=== PATIENT | male | born 1950 | race Asian ===

== ENCOUNTER → 2017-09-02 09:12 | Outpatient (CLI) | payer MEDICARE, OTHER, SELFPAY ==
--- NOTE | 2017-09-04 07:51 | PM.PFT.1 ---
Pulmonary Function Test Referral & Results Date Patient Seen: 09/02/17 Requesting provider: Luis Gutierrez Results: The spirometry demonstrates an FVC of 1.76 L which is 50% of predicted. The FEV1 was measured at 1.27 L which is 49% of predicted. The FEV1/FVC ratio was 73 which is 98% of predicted. Following the administration of bronchodilator there was no appreciable change. Lung volumes show an SVC of 1.84 L which is 50% of predicted. The diffusing capacity was measured at 10.53 which is 45% of predicted. No hemoglobin value was provided, so no correction for potential anemia could be made, if appropriate. The maximum voluntary ventilation was reduced. Interpretation: This study demonstrates moderately severe obstructive lung disease without evidence of benefit following bronchodilator administration. There is also moderately severe restrictive lung disease based on significant reduction in lung volumes. There is also a very significant reduction in diffusing capacity suggesting significant disease at the capillary alveolar level. Compared to PFTs performed in February 2017, current study is essentially unchanged.
== END ==
PROVIDERS: Family Provider Family Medicine; PCP Family Medicine; Visit Provider Internal Medicine Critical Care Medicine
DX: J98.4 Other disorders of lung (principal); J92.9 Pleural plaque without asbestos; J18.9 Pneumonia, unspecified organism; Z77.090 Contact with and (suspected) exposure to asbestos
CPT/HCPCS: 94010; 94060; 94726; 94729

== ENCOUNTER → 2024-02-22 07:22 | Outpatient (CLI) | payer MEDICARE, OTHER, SELFPAY ==
--- NOTE | 2024-02-22 07:24 | DI.US.S_ITS ---
PROCEDURE: US ABDOMEN COMPLETE INDICATIONS: THROMBOCYTOPENIA TECHNIQUE: Real-time scanning was performed of the abdominal and retroperitoneal organs, with image documentation. COMPARISON: None. FINDINGS: Liver: Liver is normal in size and homogeneous in echotexture. Gallbladder: No stones, pericholecystic fluid, or abnormal thickening. Biliary ducts: Intrahepatic bile ducts are non-dilated. Extrahepatic bile duct caliber measures 6 mm. Normal is 6-7 mm or less in diameter, or 10 mm or less post-cholecystectomy. Pancreas: Not well identified due to overlying bowel gas. Spleen: Spleen is normal in size (9.7 cm in maximal dimension) and homogeneous in echotexture. Kidneys: The [place] kidneys are echogenic in echotexture. The right kidney measures 7.4 cm in length with a cortical thickness of 0.7 cm. The left kidney measures 9.7 cm with a cortical thickness of 1.3 cm. There is a left inferior pole 1.6 cm simple cyst. Aorta: Visualized aorta is normal in caliber at less than 3 cm. Iliacs: Obscured due to overlying bowel gas. IVC: Intrahepatic inferior vena cava is patent. Miscellaneous: No free abdominal fluid. Right lower quadrant transplant kidney with a length of 10.8 cm and cortical thickness of 0.9 cm. Vascularity is preserved. There is a 2.7 cm superolateral exophytic simple cyst. IMPRESSION: 1. No hepatosplenomegaly. 2. Right renal atrophy with overall sonographic findings reflective of chronic medical renal disease. 3. Right lower quadrant transplant kidney with preserved vascularity. Dictated by: Ramo Aguilar M.D. on 02/22/2024 at 15:09 Approved by: Ramo Aguilar M.D. on 02/22/2024 at 15:16
== END ==
PROVIDERS: Family Provider Family Medicine; PCP Physician Assistant; Referring Provider Internal Medicine; Visit Provider Internal Medicine
DX: T86.10 Unspecified complication of kidney transplant (principal); N28.1 Cyst of kidney, acquired; D69.6 Thrombocytopenia, unspecified
CPT/HCPCS: 76700

== ENCOUNTER 2024-07-22 03:27 | Emergency (ER) | payer MEDICARE, OTHER, SELFPAY ==
[2024-07-22] VITALS (23 sets, daily range): BP systolic 101–195; BP diastolic 55–97; PULSE 40–88; RESP 18; TEMP 34.7–36.1; O2SAT 93–100
[2024-07-22] MEDS: SODIUM BICARB 8.4% SYRINGE 50 MEQ IV (03:30)
[2024-07-22] MEDS: CALCIUM GLUCONATE 4.65 MEQ in SODIUM CHLORIDE 0.9% 50 ML 180 MEQ IV ×2 (03:33→05:39)
--- NOTE | 2024-07-22 03:33 | DI.RAD.S_ITS ---
PROCEDURE: XR CHEST 1V INDICATIONS: s/p intubation TECHNIQUE: One view of the chest was acquired. COMPARISON: None. FINDINGS AND IMPRESSION: ET tube projects over the mid trachea. Low lung volumes. Moderate diffuse lung disease, likely edema or infection. Consider future imaging surveillance to assess for resolution. Sternotomy wires. Cardiomegaly and mediastinal clips. No significant discrepancy from the preliminary report. Dictated by: Danny Tariq M.D. on 07/22/2024 at 8:01 Approved by: Danny Tariq M.D. on 07/22/2024 at 8:03
--- NOTE | 2024-07-22 03:34 | DI.CT.S_ITS ---
PROCEDURE: CT ANGIO CHEST PE PROTOCOL INDICATIONS: s/p ROSC TECHNIQUE: After the administration of intravenous contrast, 2 mm thick sections acquired from the pulmonary apices to the posterior costophrenic angles. 3-dimensional maximum intensity projection (MIP) coronal and sagittal reformats were then acquired through the thorax. For radiation dose reduction, the following was used: automated exposure control, adjustment of mA and/or kV according to patient size. COMPARISON: None. FINDINGS: Image quality: Diagnostic Lungs and pleura: Bibasilar consolidations. [id number]-[id number] right pleural effusion. Opacities also seen in the upper lobes, along with septal thickening. ET tube terminates in the mid trachea Mediastinum, heart, and esophagus: No acute pulmonary embolism. Poor filling of the left lower lobe pulmonary arteries. Cardiomegaly. Coronary calcifications. Partially seen enteric tube. No pathologic lymph nodes by size criteria. Chest wall and thyroid: Small thyroid nodules, measuring up to 1.5 cm, with calcifications. Upper abdomen: Separately dictated Bones: No aggressive appearing osseous abnormality. There are degenerative changes. There are sternotomy wires. Minimal to nondisplaced rib fractures anteriorly likely related chest compressions. IMPRESSION: Filling defect within the left lower lobe pulmonary arteries do not appear to be acute. This is favored to be related to contrast timing versus low cardiac output, versus subacute to chronic embolism. Cardiomegaly and coronary calcifications. Diffuse airspace consolidations, greatest in the right lower lobe. Adjacent mqqb-xg-rxskrgqw effusion. Consider future imaging surveillance to assess for resolution. Small thyroid nodules with calcifications, consider nonurgent sonographic follow-up. Other findings above. To ensure final report receipt, call report was initiated from the [facility] radiology call center. Dictated by: Danny Tariq M.D. on 07/22/2024 at 8:15 Approved by: Danny Tariq M.D. on 07/22/2024 at 8:22
--- NOTE | 2024-07-22 03:34 | DI.CT.S_ITS ---
PROCEDURE: CT HEAD/BRAIN WO CON INDICATIONS: s/p ROSC TECHNIQUE: Noncontrast 4.5 mm thick angled axial sections acquired from the foramen magnum to the vertex, with coronal and sagittal reformats. For radiation dose reduction, the following was used: automated exposure control, adjustment of mA and/or kV according to patient size. COMPARISON: None. FINDINGS: Image quality: Diagnostic CSF spaces: Basal cisterns are patent. Lateral ventricles are symmetric. Volume: Vascular calcifications. Periventricular white matter disease is commonly seen with chronic microangiopathy. Volume loss is present. These findings are moderate Brain: No intracranial hemorrhage. Bowen-white differentiation is grossly maintained. Craniofacial structures: Partially seen enteric tube and ETT. Paranasal sinus nvtf-kj-qugimtgx mucosal thickening. IMPRESSION: No acute intracranial pathology. No significant discrepancy from the preliminary report Dictated by: Danny Tariq M.D. on 07/22/2024 at 8:14 Approved by: Danny Tariq M.D. on 07/22/2024 at 8:15
--- NOTE | 2024-07-22 03:35 | DI.CT.S_ITS ---
PROCEDURE: CT ABDOMEN PELVIS W CON INDICATIONS: s/p ROSC TECHNIQUE: After the administration of intravenous contrast, axial sections acquired from the lung bases to the pubic symphysis. Coronal and sagittal reformats were performed. For radiation dose reduction, the following was used: automated exposure control, adjustment of mA and/or kV according to patient size. COMPARISON: Ultrasound 02/22/2024 FINDINGS: Image quality: Diagnostic Lower chest: Separately dictated Liver: Slightly nodular contour Gallbladder and biliary system: Unremarkable, nondilated Pancreas: No ductal dilation Spleen: Nonenlarged Adrenals: No discrete nodules Kidneys: Bilateral renal atrophy. Right pelvis renal graft, within intermediate density probable cyst in the anterior aspect Heterogeneous enhancement of the graft. No hydronephrosis. Vessels and lymph nodes: Main portal vein is patent. No abdominal aortic aneurysm Moderate to severe atherosclerotic calcifications. No pathologic lymphadenopathy by size criteria Bowel and peritoneum: Enteric tube is seen, terminating in the body. Mild diffuse bowel wall thickening. Colonic diverticulosis. Small ascites. Body wall: Small fat containing umbilical hernia. Pelvis: Bladder is unremarkable, under distended with catheter in place. Bones: No aggressive appearing osseous abnormality. There are degenerative changes. IMPRESSION: No large hemorrhage. Small ascites. Slightly nodular liver contour, correlate for clinical signs of chronic liver disease. Atrophic [place] kidneys. Right pelvis renal graft, with heterogeneous enhancement, correlate urinalysis. Intermediate density lesion at the posterior aspect, probably intermediate density cyst as seen on prior ultrasound. Mild diffuse bowel wall thickening, possibly mild enteritis versus congestive enteropathy. No significant discrepancy from the preliminary report. Dictated by: Danny Tariq M.D. on 07/22/2024 at 8:03 Approved by: Danny Tariq M.D. on 07/22/2024 at 8:14
--- NOTE | 2024-07-22 03:36 | EKG_ITS ---
[facility] [id number] [place] [id number] Test Date: 2024-07-22 Pat Name: Salvador Bearden Department: Room: Gender: Male Recreation Instructor: GILLIAN ALFREDO : 1950 Requested By: Order Number: [id number] Reading MD: Jayden Childers MD Measurements Intervals [place] Rate: 84 P: ME: 208 QRS: 111 QRSD: 120 T: -74 QT: 370 QTc: 437 Interpretive Statements Normal sinus rhythm with sinus arrhythmia Right axis deviation Low voltage QRS Septal infarct , age undetermined ST & T wave abnormality, consider inferior ischemia NO PRIOR TRACING Electronically Signed On 07-22-2024 7:34:26 PDT by Jayden Childers MD
[2024-07-22 03:47] LABS: Add Manual Diff / Slide Review NO; Basophils Absolute Auto 100 /uL (0-100); Basophils Percent Auto 0.9 % (0-2); Eosinophils Absolute Auto 100 /uL (0-450); Eosinophils Percent Auto 1.4 % (2-4); Hematocrit 34.6 % (41-53); Hemoglobin 11.7 g/dL (13.5-17.5); Lymphocytes Absolute Auto 3000 /uL (1100-4500); Lymphocytes Percent Auto 36.3 % (25-40); Mean Corpuscular HGB Conc 33.9 % (30-36); Mean Corpuscular Hemoglobin 33.8 PG (26-34); Mean Corpuscular Volume 99.8 fL (80-100); Monocytes Absolute Auto 200 /uL (0-900); Monocytes Percent Auto 2.9 % (3-14); Neutrophils Absolute Auto 4800 /uL (1500-7000); Neutrophils Percent Auto 58.5 % (50-75); Platelet Count 67 X10^3/uL (150-400); Red Blood Cell Count 3.46 X10^6/uL (4.5-5.9); Red Cell Distribution Width 15.2 % (11.6-14.8); White Blood Cell Count 8.2 X10^3/uL (4.5-11.0)
[2024-07-22 03:53] LABS: INR 1.5 (0.9-1.3); Prothrombin Time 17.2 SECONDS (9.4-12.5)
[2024-07-22 03:56] LABS: PTT Partial Thromboplastin Tim 56 SECONDS (25.1-36.5)
--- NOTE | 2024-07-22 04:05 | DI.CT.S_ITS ---
PROCEDURE: CT CERVICAL SPINE WO CON INDICATIONS: trauma TECHNIQUE: Noncontrast 3 mm thick sections acquired from the skull base to the T4 level. Sagittal and coronal reformats were then constructed. For radiation dose reduction, the following was used: automated exposure control, adjustment of mA and/or kV according to patient size. COMPARISON: None. FINDINGS: Image quality: Diagnostic Bones: No acute vertebral body height loss. No traumatic subluxation. Mild overall degenerative changes. Soft tissues: Partially seen enteric tube and ETT. IMPRESSION: No displaced fracture or traumatic subluxation. Mild degenerative changes. If there is high concern for further derangement, consider MRI evaluation. No significant discrepancy from the preliminary report. Dictated by: Danny Tariq M.D. on 07/22/2024 at 8:23 Approved by: Danny Tariq M.D. on 07/22/2024 at 8:24
[2024-07-22 04:08] LABS: Lactate (Lactic Acid) 2.2 mmol/L (0.7-2.1)
[2024-07-22 04:09] LABS: Alanine Aminotransferase 15 IU/L (<50); Albumin 2.7 g/dL (3.5-5.0); Albumin Globulin Ratio 1.9 (1.0-2.8); Aspartate Aminotransferase 31 IU/L (17-59); BUN Creatinine Ratio 31.6 (6-22); Blood Urea Nitrogen 83 mg/dL (9-20); Chloride 106 mmol/L (98-107); Creatine Kinase 191 U/L (55-170); Estimated Glomerular Filt Rate 25 mL/min (>60); Globulin 1.4 g/dL (1.7-4.1); Glucose 112 mg/dL (70-99); HEMOLYSIS 25 (0-50); Lipase 53 U/L (23-300); Magnesium 1.6 mg/dL (1.6-2.3); Potassium 4.2 mmol/L (3.4-5.1); Total Protein 4.1 g/dL (6.3-8.2)
[2024-07-22] MEDS: PIPERACILLIN/TAZO 4.5 GM in SODIUM CHLORIDE 0.9% 100 ML IV (04:25)
--- NOTE | 2024-07-22 04:29 | EKG_ITS ---
[facility] [address] [place] [address] Test Date: 2024-07-22 Pat Name: Salvador Bearden Department: [facility] Room: Gender: Male Legal Aide: GILLIAN ALFREDO : 1950 Requested By: Order Number: [id number] Reading MD: Jayden Childers MD Measurements Intervals [place] Rate: 48 P: MS: QRS: 99 QRSD: 100 T: -72 QT: 480 QTc: 428 Interpretive Statements Sinus Rhythm with 1st Degree AV Block Rightward axis Low voltage QRS Septal infarct , age undetermined ST & T wave abnormality, consider inferolateral ischemia NO SIGNIFICANT CHANGE FROM PRIOR TRACING Electronically Signed On 07-22-2024 7:35:16 PDT by Jayden Childers MD
[2024-07-22] MEDS: SODIUM BICARB 8.4% VIAL 100 MEQ in DEXTROSE 5% WATER 1,000 ML 150 MEQ IV (04:30)
[2024-07-22 04:31] LABS: Allen Test for ABG Passed? Positive; Base Excess ABG -3.3 mmol/L (-2-3); Blood Gas Collection Site Left Radial; Delivery System Adult Ventilator; HCO3 ABG 24 mmol/L (23-27); Oxygen Saturation ABG 97 % (95-100); PCO2 ABG 55.8 mmHg (35-45); PO2 ABG 112 mmHg (80-100); TCO2 ABG 24 mmol/L (23-27); pH ABG 7.25 (7.35-7.45)
[2024-07-22 04:33] LABS: Bilirubin Total 0.8 mg/dL (0.2-1.3); NT-proBNP (BNP-Adult 18+) 8660 pg/mL (<125); Troponin I 0.036 ng/mL (0.01-0.034)
[2024-07-22 04:34] LABS: Alkaline Phosphatase 59 U/L (38-126)
[2024-07-22] MEDS: ATROPINE 1 MG/10 ML SYRINGE IV (04:34)
[2024-07-22 04:36] LABS: Calcium 6.1 mg/dL (8.4-10.2); Sodium 189 mmol/L (137-145)
[2024-07-22] MEDS: VANCOMYCIN 2,000 MG/400 ML PIGGYBACK 200 MG IV (04:48)
[2024-07-22] MEDS: EPINEPHrine 4 MG in DEXTROSE 5% IN WATER 246 ML 3.75 MG IV (04:48)
[2024-07-22] MEDS: SODIUM CHLORIDE 0.45% 1,000 ML 1000 ML IV (04:57)
[2024-07-22] MEDS: SODIUM CHLORIDE 0.9% IV (05:00)
[2024-07-22] MEDS: MAGNESIUM SULFATE IV (05:00)
[2024-07-22 05:11] LABS: Procalcitonin 0.086 ng/mL (<0.5)
[2024-07-22 05:12] LABS: Carbon Dioxide 55 mmol/L (22-32)
[2024-07-22 05:14] LABS: Reflexed Lactate in 2 Hours Y
--- NOTE | 2024-07-22 05:35 | ED_ITS ---
HPI - CPR General Chief Complaint: Cardiac Arrest/CPR Stated Complaint: code blue Time Seen by Provider: 07/22/24 03:33 Source: EMS Mode of arrival: EMS History of Present Illness HPI narrative: 73-year-old male with a past medical history of renal transplant 10 years ago, on tacrolimus, hyperlipidemia, hypertension, diabetes, comes into the ED via EMS for cardiac arrest, according to EMS 1 hour prior to arrival they were called for a syncopal episode they found him unresponsive PE, state that they did 2 rounds of epi got Ross, however while they were on their way to an outside hospital he lost pulses, therefore were diverted here, prior to arrival they did get wrong again, however at the ambulance [place] patient lost pulses again another 1 of epi was given, Ross was achieved, patient was intubated prior to arrival, did retract the ET tube to cm, according to EMS they did give patient a total of 300 of ketamine and rock. According to family patient has been having diarrhea over the past few days due to antibiotics for a left leg cellulitis, according to she states that he was getting up to use the restroom felt lightheaded dizzy and syncopized. Additional ROS HPI limited given patient's severity of illness. Related Data Allergies Allergy/AdvReac Type Severity Reaction Status Date / Time ibuprofen Allergy Verified 07/22/24 05:05 Review of Systems Review of Systems ROS Unobtainable: Unobtainable due to medical condition Exam Narrative Exam Narrative: General: Ill-appearing, HEENT: Normocephalic, atraumatic, patient intubated Neck: In C-collar for precautions Chest: Normal to inspection, negative crepitus, no overlying erythema ecchymosis Respiratory: Slightly decreased breath sounds bilaterally upon initial auscultation Cardiology: Regular rate rhythm negative gallop GI/: N soft, non rigid, normal to inspection, MSK: No gross deformities noted, atraumatic, Skin: No rashes or lesions noted Neuro: Unresponsive Initial Vital Signs Initial Vital Signs: Vital Signs Pulse Rate 88 07/22/24 03:30 Blood Pressure 195/97 H 07/22/24 03:30 Pulse Oximetry 94 07/22/24 03:30 Procedures Central Line Placement Right Femoral: Time of procedure: 05:55 Time Out Performed: Yes Patient Placed on Monitor/Pulse Ox: Yes Prep: mask and gloves Central Line Prep: Chlorhexidine scrub Ultrasound Used for Placement: Yes Central Line Lumen Inserted: triple Post Procedure: sutured in place, good blood return, all ports aspirated, flushed, capped, sterile dressing applied and line stabilization device Patient Tolerated Procedure: Well and No complications Complications: none Course Orders Ordered: ED Orders 07/22/24 03:30 Complete Blood Count AUTO DIFF Stat Comprehensive Metabolic Panel Stat Lactate (Lactic Acid) Stat Lipase Stat MAG [Magnesium] Stat NT-proBNP (BNP-Adult 18+) Stat PTT Partial Thromboplastin Charles Stat Procalcitonin Stat Prothrombin Time INR Stat Troponin & CK Cardiac Panel Stat 07/22/24 03:33 XR chest 1V Stat EKG-12 Lead Stat 07/22/24 03:34 CT angio chest PE protocol Stat CT head/brain wo con Stat Urinalysis and Microscopic Stat 07/22/24 03:35 CT abdomen pelvis w con Stat Arterial Blood Gas STAT 07/22/24 03:45 Blood Culture Stat 07/22/24 04:05 CT cervical spine wo con Stat 07/22/24 04:28 EKG-12 Lead Stat 07/22/24 06:05 CMP [Comprehensive Metabolic Panel] Stat NOREPINEPHRINE BITARTRATE/D5W (Levophed) 4 mg in 250 mls @ 30.375 mls/hr IV TITRATE CARIDAD; Protocol Last Admin: 07/22/24 05:40 Dose: Not Given Sodium Bicarbonate 100 meq/ (Dextrose) 1,100 mls @ 150 mls/hr IV CONT CARIDAD Last Admin: 07/22/24 04:30 Dose: 150 mls/hr Documented By: PEYTON Epinephrine HCl 4 mg/ Dextrose 250 mls @ 3.75 mls/hr IV TITRATE CARIDAD; Protocol Last Titration: 07/22/24 05:24 Dose: 4 mcg/min, 15 mls/hr Documented By: Titration: 07/22/24 05:11 Dose: 3 mcg/min, 11.25 mls/hr Documented By: Titration: 07/22/24 04:58 Dose: 2 mcg/min, 7.5 mls/hr Documented By: HNBenson Admin: 07/22/24 04:48 Dose: 1 mcg/min, 3.75 mls/hr Documented By: PEYTON Lactated Ringer's (Lactated Ringers) 1,000 mls @ 150 mls/hr IV CONT CARIDAD Last Admin: 07/22/24 05:59 Dose: 150 mls/hr Discontinued Medications Atropine Sulfate (Atropine 1 Mg/10 Ml Syringe) 1 mg IV NOW ONE Stop: 07/22/24 04:39 Last Admin: 07/22/24 04:34 Dose: 1 mg Documented By: PEYTON Vancomycin HCl/Dextrose (Vancomycin) 2,000 mg in 400 mls @ 200 mls/hr IV NOW ONE Stop: 07/22/24 06:09 Last Admin: 07/22/24 04:48 Dose: 200 mls/hr Documented By: PEYTON Piperacillin Sod/Tazobactam (Sod 4.5 gm/ Sodium Chloride) 100 mls @ 200 mls/hr IV NOW ONE Stop: 07/22/24 04:11 Last Infusion: 07/22/24 05:08 Dose: Infused Documented By: Admin: 07/22/24 04:25 Dose: 200 mls/hr Documented By: PEYTON Calcium Gluconate 4.65 meq/ (Sodium Chloride) 60 mls @ 180 mls/hr IV NOW ONE Stop: 07/22/24 03:39 Last Infusion: 07/22/24 05:17 Dose: Infused Documented By: Admin: 07/22/24 03:33 Dose: 180 mls/hr Documented By: PEYTON Sodium Bicarbonate 150 meq/ (Dextrose) 1,150 mls @ 150 mls/hr IV CONT CARIDAD Sodium Chloride (Normal Saline 0.45%) 1,000 mls @ 1,000 mls/hr IV BOLUS ONE Stop: 07/22/24 05:41 Last Admin: 07/22/24 04:57 Dose: 1,000 mls/hr Documented By: PEYTON Magnesium Sulfate 5 gm/ Sodium (Chloride) 110 mls @ 110 mls/hr IV NOW ONE Stop: 07/22/24 05:59 Last Titration: 07/22/24 06:17 Dose: 0 mls/hr Calcium Gluconate 4.65 meq/ (Sodium Chloride) 60 mls @ 180 mls/hr IV NOW ONE Stop: 07/22/24 05:49 Last Titration: 07/22/24 06:17 Dose: 0 mls/hr Sodium Bicarbonate (Sodium Bicarb 8.4% Syringe) 50 meq IV NOW ONE Stop: 07/22/24 03:21 Last Admin: 07/22/24 03:30 Dose: 50 meq Documented By: HNG Vital Signs Vital signs: Vital Signs - 8 hr 07/22/24 03:30 07/22/24 03:30 07/22/24 03:31 Temperature Pulse Rate 88 Respiratory Rate Blood Pressure 195/97 H 163/90 H Pulse Oximetry 94 Oxygen Delivery Method 07/22/24 03:31 07/22/24 04:20 07/22/24 04:20 Temperature 97.0 F L Pulse Rate 88 58 L Respiratory Rate 18 18 Blood Pressure 121/63 Pulse Oximetry 94 94 Oxygen Delivery Method Mechanical Ventilation 07/22/24 04:26 07/22/24 04:26 07/22/24 04:30 Temperature 96.8 F L 96.8 F L Pulse Rate 55 L 43 L Respiratory Rate 18 18 Blood Pressure 114/56 L Pulse Oximetry 97 97 Oxygen Delivery Method 07/22/24 04:30 07/22/24 04:32 07/22/24 04:32 Temperature 96.8 F L Pulse Rate 44 L Respiratory Rate 18 Blood Pressure 112/58 L 109/57 L Pulse Oximetry 96 Oxygen Delivery Method 07/22/24 04:35 07/22/24 04:35 07/22/24 04:40 Temperature 96.6 F L 96.6 F L Pulse Rate 42 L 42 L Respiratory Rate 18 18 Blood Pressure 102/59 L Pulse Oximetry 96 96 Oxygen Delivery Method 07/22/24 04:40 07/22/24 04:45 07/22/24 04:45 Temperature 96.4 F L Pulse Rate 41 L Respiratory Rate 18 Blood Pressure 104/55 L 101/58 L Pulse Oximetry 97 Oxygen Delivery Method 07/22/24 04:51 07/22/24 04:51 07/22/24 04:55 Temperature 96.3 F L 96.3 F L Pulse Rate 41 L 41 L Respiratory Rate 18 18 Blood Pressure 115/58 L Pulse Oximetry 94 93 Oxygen Delivery Method 07/22/24 04:55 07/22/24 05:00 07/22/24 05:00 Temperature 96.1 F L Pulse Rate 43 L Respiratory Rate 18 Blood Pressure 121/64 121/62 Pulse Oximetry 93 Oxygen Delivery Method 07/22/24 05:01 07/22/24 05:01 07/22/24 05:05 Temperature 96.1 F L Pulse Rate 40 L Respiratory Rate 18 Blood Pressure 124/65 113/57 L Pulse Oximetry 93 Oxygen Delivery Method Mechanical Ventilation 07/22/24 05:05 07/22/24 05:10 07/22/24 05:10 Temperature 95.9 F L 95.7 F L Pulse Rate 46 L 45 L Respiratory Rate 18 18 Blood Pressure 114/60 Pulse Oximetry 93 95 Oxygen Delivery Method 07/22/24 05:15 07/22/24 05:15 07/22/24 05:20 Temperature 95.5 F L 95.4 F L Pulse Rate 42 L 41 L Respiratory Rate 18 18 Blood Pressure 114/58 L Pulse Oximetry 96 96 Oxygen Delivery Method 07/22/24 05:20 07/22/24 05:25 07/22/24 05:25 Temperature 95.2 F L Pulse Rate 41 L Respiratory Rate 18 Blood Pressure 116/59 L 123/66 Pulse Oximetry 99 Oxygen Delivery Method 07/22/24 05:30 07/22/24 05:30 07/22/24 05:35 Temperature 95.0 F L 94.8 F L Pulse Rate 41 L 42 L Respiratory Rate 18 18 Blood Pressure 124/68 Pulse Oximetry 97 99 Oxygen Delivery Method 07/22/24 05:35 07/22/24 05:52 Temperature 94.5 F L Pulse Rate 46 L Respiratory Rate 18 Blood Pressure 142/63 H 149/75 H Pulse Oximetry 98 Oxygen Delivery Method MDM - Cardiac Arrest/CPR Differential Diagnosis Differential diagnosis: Likely acute massive pulmonary embolism, acute respiratory failure, acute myocardial infarction, cardiac arrest, sudden cardiac and other (Electrolyte abnormality, pneumonia, CVA, intracranial hemorrhage) Lab Data 07/22/24 03:30 07/22/24 03:30 Labs: Lab Results 07/22/24 07/22/24 Range/Units 03:30 04:26 WBC 8.2 (4.5-11.0) X10^3/uL RBC 3.46 L (4.5-5.9) X10^6/uL Hgb 11.7 L (13.5-17.5) g/dL Hct 34.6 L (41-53) % MCV 99.8 (80-100) fL MCH 33.8 (26-34) PG MCHC 33.9 (30-36) % RDW 15.2 H (11.6-14.8) % Plt Count 67 L (150-400) X10^3/uL Neut % (Auto) 58.5 (50-75) % Lymph % (Auto) 36.3 (25-40) % [place] % (Auto) 2.9 L (3-14) % Eos % (Auto) 1.4 L (2-4) % Baso % (Auto) 0.9 (0-2) % Neut # (Auto) 4800 (8716-8234) /uL Lymph # (Auto) 3000 (4804-0582) /uL [place] # (Auto) 200 (0-900) /uL Eos # (Auto) 100 (0-450) /uL Baso # (Auto) 100 (0-100) /uL PT 17.2 H (9.4-12.5) SECONDS INR 1.5 H (0.9-1.3) APTT 56 H (25.1-36.5) SECONDS ABG Sample Site Left radial ABG pH 7.25 L* (7.35-7.45) ABG pCO2 55.8 H (35-45) mmHg ABG pO2 112 H (80-100) mmHg ABG HCO3 24 (23-27) mmol/L ABG Total CO2 24 (23-27) mmol/L ABG O2 Saturation 97 (95-100) % ABG Base Excess -3.3 L (-2-3) mmol/L Jabier Test Positive O2 Delivery Device Adult ventilator Sodium 189 H* (137-145) mmol/L Potassium 4.2 (3.4-5.1) mmol/L Chloride 106 (98-107) mmol/L Carbon Dioxide 55 H* (22-32) mmol/L BUN 83 H (9-20) mg/dL Creatinine 2.63 H (0.66-1.25) mg/dL Estimated GFR 25 L (>60) mL/min BUN/Creatinine Ratio 31.6 H (6-22) Glucose 112 H (70-99) mg/dL Lactate 2.2 H (0.7-2.1) mmol/L Calcium 6.1 L* (8.4-10.2) mg/dL Magnesium 1.6 (1.6-2.3) mg/dL Total Bilirubin 0.8 (0.2-1.3) mg/dL AST 31 (17-59) IU/L ALT 15 (<50) IU/L Alkaline Phosphatase 59 (38-126) U/L Total Creatine Kinase 191 H (55-170) U/L Troponin I 0.036 H (0.01-0.034) ng/mL NT-Pro-B Natriuret Pep 8660 H (<125) pg/mL Total Protein 4.1 L (6.3-8.2) g/dL Albumin 2.7 L (3.5-5.0) g/dL Globulin 1.4 L (1.7-4.1) g/dL Albumin/Globulin Ratio 1.9 (1.0-2.8) Lipase 53 (23-300) U/L Procalcitonin 0.086 (<0.5) ng/mL Imaging Data Chest x-ray: Radiologist's Impression: Preliminary read showing multifocal bilateral pulmonary infiltrates endotracheal tube in adequate position CT scan - head: Radiologist's Impression: Preliminary read showing mild global volume loss and changes suggesting micro angiopathy, no acute large territorial infarct or intracranial hemorrhage CT - cervical spine: Radiologist's Impression: Preliminary read showing degenerative changes, no acute alignment abnormalities or fractures identified, bilateral areas of pulmonary parenchymal consolidation greater on the left CT angio chest: Radiologist's Impression: Preliminary read showing eccentric filling defect within a left lower lobe pulmonary artery possibly representing a subacute to chronic pulmonary embolism. Appearance not typical for an acute pulmonary embolism. Could be related to contrast bolus timing and mixing of contrast. Recommending lower extremity evaluation for DVT, no findings of elevated right heart pressure. Dense bilateral airspace consolidation greater on the right than left with a small to moderate right pleural effusion Bilateral anterior rib fractures most likely secondary to chest compressions no pneumothorax CT scan - abdomen/pelvis: Radiologist's Impression: Preliminary read showing morphologic changes suggestive of chronic liver disease, small volume of ascites with patent portal vein, mild periportal edema nonspecific, right lower quadrant transplant kidney containing cyst ECG Data Interpretation: EKG interpreted by ED physician sinus 99 beats per minute QTC [address] changes no STEMI Repeat EKG interpreted by ED physician sinus bradycardia 48 beats per minute QTC 428 right axis deviation nonspecific ST changes no STEMI MDM Narrative Medical decision making narrative: 73-year-old male with a past medical history of renal transplant on tacrolimus proximally 10 years ago, hyperlipidemia hypertension diabetes presenting from home via EMS for cardiac arrest. According to medics they were called an hour prior to arrival for unresponsiveness, patient was found to be in [place] did give 2 rounds of epi with Rosc, patient was on the way to an outside hospital however according to medics they lost pulses therefore diverted here, they were able to get pulses back, however at time of arrival here pulses were lost again additional round of epi was given with ROSC. Upon arrival patient was given an amp of calcium and an amp of bicarb. Patient was already intubated was placed on ventilator at 6 cc/kilos tidal volume due to history of restrictive lung disease. According to medics they did give a total of 300 ketamine and rocuronium prior to arrival due to the fact that after initial Rosc they state that patient was biting the tube. ABG did show an acidosis of 7.25, CO2 of 55.8 Na O2 of 112, bicarb drip was started. Patient was sent to CT scan, no acute findings noted on head CTA angio of the chest did show multifocal pneumonia and CT abdomen without any acute finding. Upon arrival back to the room patient began to Juan down, did start an epi drip, patient now sustaining in the 40s, patient chemistry with severe electrolyte derangement, sodium 189, calcium 6.1, creatinine 2.63 BUN 31.6, patient's BNP 8660, troponin 0.036, EKG without any ischemic changes, vancomycin and Zosyn was ordered for multifocal pneumonia. Patient was started on 150 cc an hour of lactated Ringer's for hypernatremia, additional g of calcium was ordered for hypocalcemia. Did give a 1 L bolus of half-normal saline. Did place ultrasound guided right femoral line. 0423: Discussed case with vice president of advertising Dr. Little at [facility] accepts the patient but states unsure of bed availability is recommending to reach out to surrounding hospitals for possible transfer 0430: Discussed case with Dr. Sampson, vice president of advertising at [facility], accepts the patient 0500: Family was informed of transfer they understand agree with this plan, they state they would like full code. 0700: Transport here, vital signs stable safe for transport to OSH Critical Care Time Critical Care Time Critical Care Time: Yes Total Critical Care Time: 60 Attestation: Authorized and Performed by: Carl Goodman DO Total critical care time: Approximately [60] minutes Due to a high probability of clinically significant, life threatening deterioration, the patient required my highest level of preparedness to intervene emergently and I personally spent this critical care time directly and personally managing the patient. This critical care time included obtaining a history; examining the patient; pulse oximetry; ordering and review of studies; arranging urgent treatment with development of a management plan; evaluation of patient's response to treatment; frequent reassessment; and, discussions with other providers. This critical care time was performed to assess and manage the high probability of imminent, life-threatening deterioration that could result in multi-organ failure. It was exclusive of separately billable procedures and treating other patients and teaching time. Please see MDM section and the rest of the note for further information on patient assessment and treatment. Discharge Plan Departure Patient Disposition: [facility] Clinical Impression: Cardiac arrest, Acute hypernatremia, NIALL (acute kidney injury), Hypocalcemia, Metabolic acidosis Referrals: Phylicia Serna PA-C [Primary Care Provider] -
[2024-07-22] MEDS: LACTATED RINGERS 1,000 ML 150 ML IV (05:59)
--- NOTE | 2024-07-22 06:18 | PC.NURSE ---
Nurse to nurse report was called to Veronica at [facility] by Amelia CARTER
[2024-07-22 06:31] LABS: Alanine Aminotransferase 17 IU/L (<50); Albumin 2.8 g/dL (3.5-5.0); Albumin Globulin Ratio 1.3 (1.0-2.8); Alkaline Phosphatase 72 U/L (38-126); Aspartate Aminotransferase 41 IU/L (17-59); Bilirubin Total 1.2 mg/dL (0.2-1.3); Blood Urea Nitrogen 75 mg/dL (9-20); Calcium 8.4 mg/dL (8.4-10.2); Carbon Dioxide 17 mmol/L (22-32); Chloride 105 mmol/L (98-107); Estimated Glomerular Filt Rate 13 mL/min (>60); Globulin 2.2 g/dL (1.7-4.1); Glucose 155 mg/dL (70-99); HEMOLYSIS < 15 (0-50); Lactate 2HR (Lactic Acid Rflx) 1.2 mmol/L (0.7-2.1); Sodium 133 mmol/L (137-145)
[2024-07-22 06:35] LABS: Potassium 7.3 mmol/L (3.4-5.1)
--- NOTE | 2024-07-22 07:12 | PC.NURSE ---
Bedside report given/care transferred to [facility] RN Franko.
--- NOTE | 2024-07-22 07:14 | PC.NURSE ---
Pt's smart watch was given to daughter to take home.
[2024-07-25 10:40] LABS: Acinetobacter calcoa-baumannii Not Detected (Not Detect); Bacteroides fragilis Not Detected (Not Detect); Candida albicans Not Detected (Not Detect); Candida auris Not Detected (Not Detect); Candida glabrata Not Detected (Not Detect); Candida krusei Not Detected (Not Detect); Candida parapsilosis Not Detected (Not Detect); Candida tropicalis Not Detected (Not Detect); Cryptococcus neoformans/gatti Not Detected (Not Detect); Enterobacter cloacae complex Not Detected (Not Detect); Enterobacterales Not Detected (Not Detect); Enterococcus faecalis Not Detected (Not Detect); Enterococcus faecium Not Detected (Not Detect); Haemophilus influenzae Not Detected (Not Detect); Klebsiella aerogenes Not Detected (Not Detect); Listeria monocytogenes Not Detected (Not Detect); Neisseria meningitidis Not Detected (Not Detect); Proteus species Not Detected (Not Detect); Pseudomonas aeruginosa Not Detected (Not Detect); Salmonella species Not Detected (Not Detect); Serratia marcescens Not Detected (Not Detect); Staphylococcus epidermidis Not Detected (Not Detect); Staphylococcus lugdunensis Not Detected (Not Detect); Staphylococcus species Not Detected (Not Detect); Stenotrophomonas maltophilia Not Detected (Not Detect); Streptococcus agalactiae (Gr B Not Detected (Not Detect); Streptococcus pneumonia Not Detected (Not Detect); Streptococcus pyogenes (Gr A) Not Detected (Not Detect); Streptococcus species Not Detected (Not Detect)
== END 2024-07-22 07:22 | disposition short-term general hospital (02) ==
PROVIDERS: Emergency Provider Student in an Organized Health Care Education/Training Program; Family Provider Family Medicine; PCP Physician Assistant
DX: I46.9 Cardiac arrest, cause unspecified (principal); E87.0 Hyperosmolality and hypernatremia; N17.9 Acute kidney failure, unspecified; E83.51 Hypocalcemia; E87.20 Acidosis, unspecified
CPT/HCPCS: 36415; 36556; 36600; 70450; 71045; 71275; 72125; 74177; 80053; 82550; 82805; 83605; 83690; 83735; 83880; 84145; 84484; 85025; 85610; 85730; 87040; 87154; 93005; 96365; 96366; 96367; 96368; 96375; 99285; 99291; 99292; J0171; J0461; J0612; J2543; J3475; J7050; Q9967